=== PATIENT | female | born 1965 | race Caucasian/White ===

== ENCOUNTER → 2019-08-18 10:08 | Outpatient (CLI) | payer MEDICARE, MEDICAID, SELFPAY ==
--- NOTE | 2019-08-18 | DI.US.S_ITS ---
PROCEDURE: US ARTERIAL DUPLEX LE BI INDICATIONS: DIABETIC FOOT INFECTION SHORTNESS OF BREATH TECHNIQUE: Color and pulse Doppler interrogation was performed of both lower extremity arterial systems, with image documentation. COMPARISON: [facility] Outside Film, MR, MR FOREFOOT RIGHT WITHOUT CONTRAST, 05/04/2019, 12:16. FINDINGS: Right lower extremity: Common femoral artery: 178 cm/sec, with triphasic flow. Deep femoral artery: 137 cm/sec, with triphasic flow. Proximal superficial femoral artery: 151 cm/sec, with biphasic flow. Mid superficial femoral artery: 135 cm/sec, with monophasic flow. Distal superficial femoral artery: 109 cm/sec, with monophasic flow. Popliteal artery: 270 cm/sec, with monophasic flow. Posterior tibial artery: 69 cm/sec, with monophasic flow. Anterior tibial artery/dorsalis pedis: 83 cm/sec, with monophasic flow. Vega-scale imaging description: Diffuse SFA disease with a collateral in the mid thigh segment suggesting significant SFA stenosis. Monophasic flow in the mid thigh SFA distally. Velocity change suggesting severe popliteal stenosis. Left lower extremity: Common femoral artery: 183 cm/sec, with biphasic flow. Deep femoral artery: 174 cm/sec, with biphasic flow. Proximal superficial femoral artery: 210 cm/sec, with monophasic flow. Mid superficial femoral artery: 124 cm/sec, with monophasic flow. Distal superficial femoral artery: 85 cm/sec, with monophasic flow. Popliteal artery: 145 cm/sec, with monophasic flow. Posterior tibial artery: 94, 31 cm/sec, with monophasic flow. Anterior tibial artery/dorsalis pedis: 83 cm/sec, 65, with monophasic flow. Vega-scale imaging description: Common femoral and proximal SFA velocity suggests moderate disease. Question inflow disease. Monophasic waveforms distal to the common femoral. IMPRESSION: 1. Right lower extremity findings suggest flow limiting stenotic disease of the proximal and mid SFA with collateral formation as monophasic flow from the mid SFA distally. 2. Question significant left lower extremity inflow disease. Probable moderate common femoral and proximal SFA disease with monophasic flow from the proximal SFA distally. Dictated by: Rodrigo Rojas M.D. on 08/19/2019 at 11:24 Approved by: Rodrigo Rojas M.D. on 08/19/2019 at 11:34
== END ==
PROVIDERS: Visit Provider Internal Medicine Cardiovascular Disease
DX: R06.02 Shortness of breath (principal); E11.69 Type 2 diabetes mellitus with other specified complication; L08.9 Local infection of the skin and subcutaneous tissue, unspecified
CPT/HCPCS: 93925

== ENCOUNTER → 2019-09-28 13:32 | Outpatient (CLI) | payer MEDICARE, MEDICAID, SELFPAY ==
--- NOTE | 2019-09-28 | DI.ECHO.S_ITS ---
[facility] +---------+ [facility] +---------+ : : [address] : [place] [place] : : : : [id number] : : : : Phone: [phone]+ Echocardiogram Report + + :Name: ROBLES KATZ Study Date: 09/28/2019 Height: 65 in : :[facility] Weight: 280 lb : : Gender: Female BSA: 2.3 m2 : :: 1965 Age: 54 yrs BP: 132/88 mmHg: :Reason For Study: SOB : :Ordering Physician: Justino Xavier : :Jihan Performed By: Carla Carrasco : :Referring: JUSTINO BOBO : + + Interpretation Summary 1) Mildly increased left ventricular thickness (concentric) with normal sixe with moderately to severely reduced function (EF30-35%). 2) Global hypokinesis with akinesis of the apical inferoseptum and inferoapex. 3) Normal right ventricular size and function. 4) No significant valvular abnormalities. 5) No prior Echo available for comparison. Procedure: A two-dimensional transthoracic echocardiogram with color flow and Doppler was performed. The study quality was technically adequate. A contrast injection of Definity was performed to improve assessment of LV function. There is no prior echocardiogram noted for this patient. Requested for contrast on echo order. The patient was in normal sinus rhythm during the exam. Left Ventricle: The left ventricle is normal in size. There is mild concentric left ventricular hypertrophy. The ejection fraction is estimated to be 30-35%. Left ventricular systolic function is moderate to severely reduced. Global hypokinesis with akinesis of the apical inferoseptum and inferoapex. Right Ventricle: The right ventricle is normal in size and function. Atria: The left atrium is mildly dilated. The right atrium is normal in size. There is no Doppler evidence for an interatrial shunt. Mitral Valve: There is mild mitral annular calcification. There is mild mitral regurgitation. Aortic Valve: The aortic valve is trileaflet. There is moderate aortic valve sclerosis. There is no aortic valve stenosis. There is trace aortic regurgitation. Tricuspid Valve: The tricuspid valve is normal in structure and function. There is trace tricuspid regurgitation. The right ventricular systolic pressure is estimated to be at least 24 mmHg based on an estimated right atrial pressure of 3 mm Hg. Pulmonic Valve: The pulmonic valve is not well visualized. There is no pulmonic valvular regurgitation. Great Vessels: The aortic root is normal size. The ascending aorta is normal in size. The IVC is of normal diameter and collapses greater than 50% with a sniff. This suggests a low right atrial pressure of 3 mm Hg. Pericardium/ Pleura There is no pericardial effusion. MMode/2D Measurements & Calculations LVIDd: 5.2 cm LVOT diam: 2.0 cm LVIDs: 4.3 cm Ao root diam: 2.8 cm FS: 16.9 % asc Aorta Diam: 3.0 cm EPSS: 2.2 cm Ao Arch Diam (Prox Trans): 2.6 cm IVSd: 1.3 cm LVPWd: 1.2 cm LV restrepo. diameter/BSA (cm/m^2): 2.3 LV sys. diameter/BSA (cm/m^2): 1.9 LA A2 area: 25.2 cm2 RA long axis: 5.4 cm LA A4 area: 22.0 cm2 RA area: 18.8 cm2 LA length (vol): 5.5 cm RA vol: 55.8 ml LA vol: 85.1 ml RA : 24.4 ml/m2 LA vol index: 37.3 ml/m2 IVC diam: 1.5 cm RVD1 (basal): 3.7 cm RVD2 (mid): 2.9 cm TAPSE: 2.4 cm Doppler Measurements & Calculations Ao V2 max: 187.8 cm/sec LVOT Max Masood: 84.7 cm/sec Ao V2 mean: 131.6 cm/sec LV V1 max P.9 mmHg Ao max P.1 mmHg LV V1 VTI: 19.5 cm Ao mean P.9 mmHg JOHN(I,D): 1.4 cm2 Ao V2 VTI: 44.6 cm JOHN(V,D): 1.5 cm2 sev ratio: 0.44 JOHN indexed to BSA (cm^2/m^2): 0.62 MV E max masood: 129.1 cm/sec TR max masood: 228.9 cm/sec MV A max masood: 73.4 cm/sec TR max P.0 mmHg MV E/A: 1.8 PA V2 max: 63.7 cm/sec Med Peak E' Masood: 2.8 cm/sec PA V2 mean: 44.6 cm/sec E/E' med: 45.4 PA mean P.91 mmHg Lat Peak E' Masood: 6.6 cm/sec PA pr(Accel): -0.41 mmHg E/E' lat: 19.6 PA Accel Time: 0.18 sec E/e' average: 32.5 MV dec time: 0.19 sec MV P1/2t: 53.5 msec MV P1/2t max masood: 129.4 cm/sec SV(LVOT): 63.3 ml MVA(P1/2t): 4.1 cm2 Reading Physician:05:04 PM
== END ==
PROVIDERS: PCP Family Medicine; Referring Provider Internal Medicine Cardiovascular Disease; Visit Provider Internal Medicine Cardiovascular Disease
DX: I08.0 Rheumatic disorders of both mitral and aortic valves (principal); R06.02 Shortness of breath; E11.628 Type 2 diabetes mellitus with other skin complications; L08.9 Local infection of the skin and subcutaneous tissue, unspecified
CPT/HCPCS: 93306; Q9957